=== PATIENT | male | born 1940 | race Caucasian/White ===

== ENCOUNTER 2024-07-02 19:14 | Inpatient (IN) | payer OTHER ==
[~2024-07-02] VITALS: Ht 182.9 cm; Wt 81.1 kg
[2024-07-02 19:46] LABS: BASOPHILS % (AUTO) 0.6 % (0.0-2.0); EOSINOPHILS % (AUTO) 2.6 % (1.0-6.0); HEMATOCRIT 43.5 % (41-53); LYMPHOCYTES # (AUTO) 4.8 K/uL (1.0-4.8); LYMPHOCYTES % (AUTO) 49.1 % (22.0-44.0); MEAN CORPUSCULAR HEMOGLOBIN 30.9 pg (26.0-34.0); MEAN CORPUSCULAR HGB CONC 32.2 G/dL (31.0-37.0); MEAN CORPUSCULAR VOLUME 96 fL (80-100); MONOCYTES % (AUTO) 10.6 % (2.0-9.0); NEUTROPHILS # (AUTO) 3.6 K/uL (1.8-7.7); NEUTROPHILS % (AUTO) 37.1 % (40.0-70.0); PLATELET COUNT (AUTO) 185 K/uL (150-450); RED BLOOD CELL COUNT(AUTO) 4.54 MIL/uL (4.50-5.90); RED CELL DISTRIBUTION WIDTH 14.6 % (11.5-14.5); WHITE BLOOD COUNT (AUTO) 9.7 K/uL (4.5-11.0)
[2024-07-02] MEDS ORDERED: SODIUM CHLORIDE 0.9% 100 ML ONE ×2 (20:01→20:41)
[2024-07-02] MEDS ORDERED: IOHEXOL 350 MG/ML 100 ML VIAL ONE ×2 (20:01→20:41)
[2024-07-02 20:02] LABS: PROTHROMBIN TIME 12.4 SEC (9.4-11.6)
[2024-07-02 20:05] LABS: TROPONIN I-HIGH SENSITIVITY 23 ng/L (<76)
[2024-07-02 20:11] LABS: CALCIUM, TOTAL 9.6 mg/dL (8.8-10.5); CREATININE 1.56 mg/dL (0.60-1.30); POTASSIUM 3.6 mmol/L (3.5-5.1)
[2024-07-02 20:17] LABS: ALBUMIN 3.4 g/dL (3.4-5.0); TOTAL PROTEIN, SERUM 7.1 g/dL (6.4-8.2)
[2024-07-02] MEDS ORDERED: MAGNESIUM HYDROXIDE SUSPENSION 30 ML UDCUP PO PRN (21:15)
[2024-07-02] MEDS ORDERED: BISACODYL 10 MG RECTAL RECTAL SUPPOSITORY PR PRN (21:15)
[2024-07-02] MEDS ORDERED: ACETAMINOPHEN 325 MG TABLET PO PRN (21:15)
[2024-07-02] MEDS ORDERED: ASPIRIN 325 MG TABLET PO ONE (21:15)
[2024-07-02] MEDS ORDERED: ZOLPIDEM TARTRATE 5 MG TABLET PO PRN (21:15)
[2024-07-02] MEDS ORDERED: ASPIRIN 81 MG CHEWABLE TABLET PO ONE (21:15)
[2024-07-02] MEDS ORDERED: CLOPIDOGREL BISULFATE 75 MG TABLET PO ONE (21:15)
[2024-07-02] MEDS ORDERED: MORPHINE SULFATE 2 MG/ML SYRINGE IVP PRN (21:15)
[2024-07-02] MEDS ORDERED: ONDANSETRON HCL 4 MG/2 ML VIAL IVP PRN (21:15)
[2024-07-02] MEDS ORDERED: FURO20TA4 PO (22:21)
[2024-07-02] MEDS ORDERED: METO25 PO (22:21)
[2024-07-02] MEDS ORDERED: ATOR40TA71 PO (22:21)
[2024-07-02] MEDS ORDERED: DABI150C2 PO (22:21)
[2024-07-03] MEDS: HEPARIN SODIUM,PORCINE 5,000 UNITS/ML VIAL SQ SCH
[2024-07-03 00:47] VITALS: BP 146/87; PULSE 77; RESP 19; TEMP 97.7; O2SAT 95
[2024-07-03 02:09] LABS: TROPONIN I-HIGH SENSITIVITY 106 ng/L (<76)
[2024-07-03 04:26] VITALS: BP 148/68; PULSE 82; RESP 18; TEMP 97.9; O2SAT 94
[2024-07-03 06:31] LABS: GLUCOMETER DEV NAME(LOC) 5N.1D; GLUCOSE,POINT OF CARE 124 MG/DL (70-110)
[2024-07-03 06:43] LABS: BASOPHILS % (AUTO) 0.7 % (0.0-2.0); HEMATOCRIT 38.7 % (41-53); HEMOGLOBIN 13.1 g/dL (13.5-17.5); LYMPHOCYTES % (AUTO) 24.5 % (22.0-44.0); MEAN CORPUSCULAR HGB CONC 33.8 G/dL (31.0-37.0); MEAN CORPUSCULAR VOLUME 95 fL (80-100); MONOCYTES % (AUTO) 12.4 % (2.0-9.0); NEUTROPHILS # (AUTO) 4.9 K/uL (1.8-7.7); NEUTROPHILS % (AUTO) 61.4 % (40.0-70.0); PLATELET COUNT (AUTO) 152 K/uL (150-450); RED BLOOD CELL COUNT(AUTO) 4.09 MIL/uL (4.50-5.90); RED CELL DISTRIBUTION WIDTH 14.8 % (11.5-14.5)
[2024-07-03 07:03] LABS: ANION GAP 8 mmol/L (8-16); CALCIUM, TOTAL 9.1 mg/dL (8.8-10.5); CARBON DIOXIDE 27 mmol/L (22-29); CHLORIDE 104 mmol/L (98-107); CREATININE 1.09 mg/dL (0.60-1.30); GLOMERULAR FILTR. RATE CALC > 60 mL/min (>60); GLUCOSE,RANDOM 114 mg/dL (70-110); POTASSIUM 3.6 mmol/L (3.5-5.1); SODIUM SERUM 139 mmol/L (136-145); UREA NITROGEN, BLOOD 21 mg/dL (7-18)
[2024-07-03 07:07] LABS: TROPONIN I-HIGH SENSITIVITY 113 ng/L (<76)
[2024-07-03 07:21] VITALS: BP 142/55; PULSE 84; RESP 18; TEMP 98; O2SAT 96
[2024-07-03 07:21] LABS: APPEARANCE,URINE CLEAR (CLEAR); BILIRUBIN,URINE NEGATIVE (NEGATIVE); COLOR,URINE YELLOW (YELLOW); GLUCOSE, URINE (UA) NEGATIVE (NEGATIVE); LEUKOCYTE ESTERASE ,URINE NEGATIVE (NEGATIVE); NITRATE,URINE NEGATIVE (NEGATIVE); OCCULT BLOOD,URINE NEGATIVE (NEGATIVE); PH,URINE 5.5 (5.0-8.0); PH,URINE DRUG SCREEN 5.5 (5.0-8.0); PROTEIN,URINE 30-70 mg/dL (NEGATIVE); SPECIFIC GRAVITIY, URINE > 1.030 (1.003-1.030); UROBILINOGEN,URINE <=1.0 mg/dL (<=1.0)
[2024-07-03 07:32] LABS: ALCOHOL, URINE DRUG SCREEN NEGATIVE (NEGATIVE); AMPHET/METH SCREEN,URINE NEGATIVE (NEGATIVE); BARBITURATE SCREEN, URINE NEGATIVE (NEGATIVE); BENZODIAZEPINES SCREEN,URINE NEGATIVE (NEGATIVE); CANNABINOID SCREEN,URINE NEGATIVE (NEGATIVE); COCAINE SCREEN,URINE NEGATIVE (NEGATIVE); METHADONE SCREEN, URINE NEGATIVE (NEGATIVE); OPIATE SCREEN,URINE NEGATIVE (NEGATIVE); PHENCYCLIDINE SCREEN,URINE NEGATIVE (NEGATIVE)
[2024-07-03 07:36] LABS: BACTERIA,URINE None Seen /HPF (None Seen); RBC,URINE None Seen /HPF (0-2); SQUAMOUS EPITHELIAL CELL,UR Few /LPF (None Seen); WBC,URINE 0-2 /HPF (0-5)
[2024-07-03 07:44] LABS: CHOL/HDL RATIO 3.1 (4.2-7.3); THYROID STIMULATING HORMONE 1.3 uIU/mL (0.36-3.74)
[2024-07-03] MEDS: CLOPIDOGREL BISULFATE 75 MG TABLET PO SCH (09:31)
[2024-07-03] MEDS: METOPROLOL TARTRATE 25 MG TABLET PO SCH (09:31)
[2024-07-03] MEDS: DAPAGLIFLOZIN PROPANEDIOL 5 MG TABLET PO SCH (09:31)
[2024-07-03] MEDS: PANTOPRAZOLE SODIUM 40 MG DR TABLET PO SCH (09:31)
[2024-07-03] MEDS: ASPIRIN 81 MG DR TABLET PO SCH (09:32)
[2024-07-03] MEDS: DOCUSATE SODIUM 100 MG CAPSULE PO SCH (09:32)
[2024-07-03 11:36] VITALS: BP 147/72; PULSE 66; RESP 17; TEMP 97.7; O2SAT 95
[2024-07-03 15:02] VITALS: BP 136/72; PULSE 67; RESP 18; TEMP 97.8; O2SAT 97
[2024-07-03 20:40] VITALS: BP 115/62; PULSE 77; RESP 20; TEMP 97.6; O2SAT 95
[2024-07-03] MEDS: ATORVASTATIN CALCIUM 20 MG TABLET PO SCH (20:41)
[2024-07-04 00:35] VITALS: BP 107/68; PULSE 72; RESP 19; TEMP 98.1; O2SAT 95
[2024-07-04 04:00] VITALS: BP 141/77; PULSE 74; RESP 18; TEMP 98; O2SAT 96
[2024-07-04] MEDS: HYDROCODONE/ACETAMINOPHEN 5-325 MG TABLET PO PRN (05:23)
[2024-07-04 06:32] LABS: BASOPHILS % (AUTO) 0.9 % (0.0-2.0); EOSINOPHILS % (AUTO) 3.6 % (1.0-6.0); HEMATOCRIT 40.8 % (41-53); HEMOGLOBIN 13.5 g/dL (13.5-17.5); LYMPHOCYTES # (AUTO) 1.5 K/uL (1.0-4.8); LYMPHOCYTES % (AUTO) 18.5 % (22.0-44.0); MEAN CORPUSCULAR HEMOGLOBIN 31.7 pg (26.0-34.0); MEAN CORPUSCULAR HGB CONC 33.1 G/dL (31.0-37.0); MEAN CORPUSCULAR VOLUME 96 fL (80-100); MONOCYTES # (AUTO) 0.8 K/uL (0.1-1.0); NEUTROPHILS # (AUTO) 5.6 K/uL (1.8-7.7); PLATELET COUNT (AUTO) 162 K/uL (150-450); RED BLOOD CELL COUNT(AUTO) 4.26 MIL/uL (4.50-5.90); RED CELL DISTRIBUTION WIDTH 14.7 % (11.5-14.5); WHITE BLOOD COUNT (AUTO) 8.3 K/uL (4.5-11.0)
[2024-07-04 06:39] LABS: HEMOGLOBIN A1C 5.5 % (3.8-5.6)
[2024-07-04 06:44] LABS: ANION GAP 6 mmol/L (8-16); CALCIUM, TOTAL 9.5 mg/dL (8.8-10.5); CARBON DIOXIDE 30 mmol/L (22-29); CHLORIDE 103 mmol/L (98-107); CREATININE 1.01 mg/dL (0.60-1.30); GLOMERULAR FILTR. RATE CALC > 60 mL/min (>60); GLUCOSE,RANDOM 108 mg/dL (70-110); SODIUM SERUM 139 mmol/L (136-145); UREA NITROGEN, BLOOD 16 mg/dL (7-18)
[2024-07-04 06:48] LABS: B-TYPE NATRIURETIC PEPTIDE 382 pg/mL (0-100)
[2024-07-04 06:53] LABS: TROPONIN I-HIGH SENSITIVITY 104 ng/L (<76)
[2024-07-04 08:00] VITALS: BP 145/78; PULSE 78; RESP 18; TEMP 97.7; O2SAT 93
[2024-07-04] MEDS ORDERED: SODIUM CHLORIDE 0.9% 100 ML ONE (10:19)
[2024-07-04] MEDS ORDERED: IOHEXOL 350 MG/ML 100 ML VIAL ONE (10:19)
[2024-07-04 11:51] VITALS: BP 144/74; PULSE 76; RESP 18; TEMP 98.1; O2SAT 93
[2024-07-04 15:43] VITALS: BP 145/82; PULSE 70; RESP 16; TEMP 97.6; O2SAT 95
== END 2024-07-04 18:30 | disposition short-term general hospital (02) | DRG 92 ==
LOC: EMS 19:14 → EDH 21:17 → 5N 23:30
PROVIDERS: ADMIT Internal Medicine; ATTEND Internal Medicine
DX: R47.1 Dysarthria and anarthria (principal); I48.19 Other persistent atrial fibrillation; N17.9 Acute kidney failure, unspecified; R47.01 Aphasia; R41.82 Altered mental status, unspecified; R42 Dizziness and giddiness; R53.1 Weakness; J47.9 Bronchiectasis, uncomplicated; I10 Essential (primary) hypertension; R73.9 Hyperglycemia, unspecified; Z79.899 Other long term (current) drug therapy; Z86.73 Personal history of transient ischemic attack (TIA), and cerebral infarction without residual deficits; Z79.02 Long term (current) use of antithrombotics/antiplatelets; Z79.82 Long term (current) use of aspirin; Z95.3 Presence of xenogenic heart valve
CPT/HCPCS: 70496; 70498; 70551; 71045; 71260; 80048; 80053; 80061; 80307; 81001; 82948; 82962; 83036; 83880; 84443; 84484; 85025; 85610; 85730; 92610; 93005; 93306; 97162; 97530; 99285; G0480; J1644; J7050; 36415-L1; 36415-TC; 70450; 70450-TC